=== PATIENT | male | born 2000 | race Caucasian/White ===

== ENCOUNTER 2022-01-23 15:43 | Emergency (ER) | payer MEDICAID ==
[~2022-01-23] VITALS: Ht 170.2 cm; Wt 106.0 kg
[2022-01-23] MEDS ORDERED: TETANUS, DIPHTHERIA, PERTUSSIS VAC/PF 0.5ML (>10YR OLD) IM ONE (16:45)
[2022-01-23] MEDS ORDERED: LIDOCAINE HCL/EPINEPHRINE 1%-EPI 1:100,000 20 ML VIAL INFIL ONE (16:45)
[2022-01-23] MEDS ORDERED: BACITRACIN ZINC OINT UDPKT TOP ONE (16:45)
[2022-01-23 18:02] VITALS: BP 146/94
== END 2022-01-23 18:06 | disposition home or self-care (01) ==
LOC: ER 16:01
DX: S61.411A Laceration without foreign body of right hand, initial encounter (principal); W26.0XXA Contact with knife, initial encounter; Y93.89 Activity, other specified; Y92.89 Other specified places as the place of occurrence of the external cause; Y99.0 Civilian activity done for income or pay
CPT/HCPCS: 12001; 90471; 90715; 99283

== ENCOUNTER 2022-01-25 14:15 | Emergency (ER) | payer MEDICAID ==
[~2022-01-25] VITALS: Ht 167.6 cm; Wt 104.0 kg
[2022-01-25 14:22] VITALS: BP 114/76
[2022-01-25] MEDS ORDERED: CEPH500T MT (14:33)
== END 2022-01-25 14:38 | disposition home or self-care (01) ==
LOC: ER 14:15
DX: Z48.00 Encounter for change or removal of nonsurgical wound dressing (principal)
CPT/HCPCS: 99281; 99283

== ENCOUNTER 2022-02-07 15:00 | Emergency (ER) | payer MEDICAID, OTHER ==
[~2022-02-07] VITALS: Ht 167.6 cm; Wt 107.0 kg
[~2022-02-07 15:00] MED LIST: CEPH500T MT
[2022-02-07 15:19] VITALS: BP 157/98
== END 2022-02-07 17:49 | disposition home or self-care (01) ==
LOC: ER 15:00
DX: S61.411D Laceration without foreign body of right hand, subsequent encounter (principal); X58.XXXD Exposure to other specified factors, subsequent encounter
CPT/HCPCS: 99281; Z7610